=== PATIENT | male | born 1990 | race American Indian/Alaskan Native ===

== ENCOUNTER 2017-05-16 01:06 | Emergency (ER) | payer SELFPAY ==
[~2017-05-16] VITALS: Ht 188 cm; Wt 70.3 kg
[2017-05-16] MEDS ORDERED: ELIMITE60 GM TOP (01:37)
== END 2017-05-16 01:40 | disposition home or self-care (01) ==
LOC: ED 01:06
DX: B86 Scabies (principal); F17.200 Nicotine dependence, unspecified, uncomplicated; Z88.0 Allergy status to penicillin
CPT/HCPCS: 99283